=== PATIENT | female | born 1975 | race Caucasian/White ===

== ENCOUNTER 2016-04-09 15:37 | Emergency (ER) | payer MEDICARE, MEDICAID ==
[~2016-04-09] VITALS: Ht 154.9 cm; Wt 81.6 kg
[2016-04-09 15:55] VITALS: BP 122/66
[2016-04-09] MEDS ORDERED: CYCL10TA2 PO (16:12)
--- NOTE | 2016-04-09 16:12 | PHYS DOC ---
Past Medical History Past Medical History: Other Additional Past Medical Histor: MS Past Surgical History: Hysterectomy, Tubal ligation Alcohol Use: None Drug Use: None Adult General Chief Complaint Chief Complaint: Neck Pain HPI HPI Patient is a 40 year old female presents emergency department stating that she woke up this morning with neck pain. She states that she is barely able to turn her head to the left or to the right and is barely able to put her chin to her chest. She denies any fever, chills or any nausea or vomiting. Patient states that she does have some numbness and tingling down into her hands although she is able to move her hands and arms without difficulty. Patient denies any numbness or tingling down to her lower extremities. She has taken BC powder for pain and discomfort which has not helped. Review of Systems Review of Systems Constitutional: Denies fever or chills [] Eyes: Denies change in visual acuity, redness, or eye pain [] HENT: Denies nasal congestion or sore throat [] Respiratory: Denies cough or shortness of breath [] Cardiovascular: No additional information not addressed in HPI [] GI: Denies abdominal pain, nausea, vomiting, bloody stools or diarrhea [] : Denies dysuria or hematuria [] Musculoskeletal: upper left back pain and discomfort into the neck Integument: Denies rash or skin lesions [] Neurologic: Denies headache, focal weakness or sensory changes [] Allergies Allergies Allergies Coded Allergies Type Severity Reaction Last Updated Verified morphine Allergy Intermediate itching 07/02/13 Yes Physical Exam Physical Exam Constitutional: Well developed, well nourished, no acute distress, non-toxic appearance. [] HENT: Normocephalic, atraumatic, bilateral external ears normal, oropharynx moist, no oral exudates, nose normal. [] Eyes: PERRLA, EOMI, conjunctiva normal, no discharge. [] Neck: Normal range of motion, no tenderness, supple, no stridor. [] Cardiovascular:Heart rate regular rhythm, no murmur [] Lungs & Thorax: Bilateral breath sounds clear to auscultation [] Skin: Warm, dry, no erythema, no rash. [] Back: No cervical spine, thoracic spine tenderness, no step-offs, deformities or crepitus noted Extremities: No tenderness, no cyanosis, no clubbing, ROM intact, no edema. Equal movement and strength per upper extremities. Neurologic: Alert and oriented X 3, normal motor function, normal sensory function, no focal deficits noted. [] Psychologic: Affect normal, judgement normal, mood normal. [] EKG EKG [] Radiology/Procedures Radiology/Procedures [] Course & Med Decision Making Course & Med Decision Making Pertinent Labs and Imaging studies reviewed. (See chart for details) Patient will be provided with Solu-Medrol injection, Toradol and Flexeril here in the emergency department. She'll be discharged home with recommendations to take ibuprofen 800 mg every 8 hours and a prescription of Flexeril. She was instructed that this medication will cause drowsiness do not take any be alert and oriented. Patient does state that she travels over the road with her significant other. She will be discharged home in stable condition signs and symptoms to return back to emergency department as been provided. [] Dragon Disclaimer Dragon Disclaimer This electronic medical record was generated, in whole or in part, using a voice recognition dictation system. Departure Departure Impression: Primary Impression: Torticollis, acute Disposition: 01 HOME, SELF-CARE Condition: STABLE Referrals: AYDEE FLOREZ (PCP) Patient Instructions: Torticollis, Acute Additional Instructions: Activity as tolerated Medication as prescribed Flexeril will cause drowsiness do not take if you need to be alert and oriented Ice packs to the areas of discomfort on 20 minutes and off 20 minutes several times a day Ibuprofen 800 mg every 8 hours with food, stop taking if you develop upset stomach Followup with primary care provider in 7-10 days Return to emergency department as needed for signs and symptoms that become worse. Scripts Cyclobenzaprine Hcl 10 Mg [id number] Mg PO TID #30 TAB Prov:MARIA DOLORES ANDINO NP 04/09/16 MARIA DOLORES ANDINO NP Apr 09, 2016 16:12
[2016-04-09] MEDS ORDERED: methylPREDNISolone SOD SUCC PF 125 MG/2 ML VIAL. IM ONE (16:15)
[2016-04-09] MEDS ORDERED: KETOROLAC TROMETHAMINE 60 MG/2 ML SYRINGE. IM ONE (16:15)
[2016-04-09] MEDS ORDERED: CYCLOBENZAPRINE 10 MG TABLET. PO ONE (16:15)
== END 2016-04-09 16:28 | disposition home or self-care (01) ==
LOC: ER 15:37
DX: M43.6 Torticollis (principal); G35 Multiple sclerosis; Z88.5 Allergy status to narcotic agent
CPT/HCPCS: 96372; 99284; J1885; J2930